=== PATIENT | female | born 1995 | race Caucasian/White ===

== ENCOUNTER 2019-03-26 23:18 | Emergency (ER) | payer OTHER ==
[2019-03-26 23:32] VITALS: BP 133/83; PULSE 78; RESP 20; TEMP 98.3
[2019-03-26] MEDS ORDERED: KETOROLAC 60 MG/2 ML VIAL IM STA (23:53)
--- NOTE | 2019-03-26 23:58 | ED ---
Extremity Problem HPI - General Chief complaint: Extremity Problem,Nontraumatic Stated complaint: Soham Knee Pain Time Seen by Provider: 03/26/19 23:32 Source: patient Mode of arrival: ambulatory Limitations: no limitations - History of Present Illness Initial comments: Patient states that since the age of 8 she has had bilateral knee pain. She states she has been previously evaluated with x-rays. Patient states that the pain continues and has been worse for the past few years. Patient states that she felt she needed evaluation. She states her knees crack when she bends them. Patient denies any knee redness swelling flulike symptoms. Patient denies any new injury or direct trauma. Patient denies any conjunctival injection or dysuria. Remaining review of systems negative upon arrival patient appears well no signs of acute distress. - Related Data Previous Rx's Medication Instructions Recorded Ibuprofen 600 mg PO Q8H PRN 7 Days #21 tablet 03/26/19 Allergies Allergy/AdvReac Type Severity Reaction Status Date / Time dextromethorphan Allergy Swelling Verified 03/26/19 23:32 [From Mucinex DM] guaifenesin [From Mucinex DM] Allergy Swelling Verified 03/26/19 23:32 Sulfa (Sulfonamide AdvReac Unknown Verified 03/26/19 23:32 Antibiotics) Review of Systems ROS Statement: Those systems with pertinent positive or pertinent negative responses have been documented in the HPI. ROS Other: All systems not noted in ROS Statement are negative. Past Medical History Past Medical History: No Reported History History of Any Multi-Drug Resistant Organisms: None Reported Past Surgical History: No Surgical Hx Reported Past Psychological History: No Psychological Hx Reported Smoking Status: Never smoker Past Alcohol Use History: Rare Past Drug Use History: None Reported General Exam - General Exam Comments Initial Comments: General: The patient is awake and alert, in no distress, and does not appear acutely ill. Eye: Pupils are equal, round and reactive to light, extra-ocular movements are intact. No nystagmus. There is normal conjunctiva bilaterally. No signs of icterus. Ears, nose, mouth and throat: There are moist mucous membranes and no oral lesions. Neck: The neck is supple, there is no tenderness or JVD. Cardiovascular: There is a regular rate and rhythm. No murmur, rub or gallop is appreciated. Respiratory: Lungs are clear to auscultation, respirations are non-labored, breath sounds are equal. No wheezes, stridor, rales, or rhonchi. Musculoskeletal: Normal inspection of the knee b/l. Normal ROM of knees b/l, mild crepitus Strength 5/5. Sensation intact. DP pulses equal bilaterally 2+. No calf pain or swelling. Neurological: A&O x 3. CN II-XII intact grossly, There are no obvious motor or sensory deficits. Coordination appears grossly intact. Speech is normal. Skin: Skin is warm and dry and no rashes or lesions are noted. Psychiatric: Cooperative, appropriate mood & affect, normal judgment. Limitations: no limitations Course Vital Signs 03/26/19 23:26 Temperature 98.3 F Pulse Rate 78 Respiratory 20 Rate Blood Pressure 133/83 O2 Sat by Pulse 97 Oximetry Medical Decision Making - Medical Decision Making 23yo female presenting today for cc of b/l knee pain x years. No new injury. No fevers, no redness. Patient has no conjunctivitis, denies vaginal discharge or dysuria. Patient neurovascularly intact. Patient gonorrhea and chlamydia testing pending. Patient recommended to f/u with PCP for outpatient plain films and orthopedic follow-up for years of pain. Patient is agreeable to this care plan and discharge at this time. - Lab Data Lab Results 03/27/19 Range/Units 00:14 Urine HCG, Qual Not Detected (Not Detectd) Disposition Clinical Impression: Chronic pain of both knees Disposition: HOME SELF-CARE Condition: Good Instructions (If sedation given, give patient instructions): Knee Pain (ED) Additional Instructions: Please use medication as discussed. Please follow-up with family doctor in the next 2 days, recommend orthopedic evaluation for further management. Please return to emergency room if the symptoms increase or worsen or for any other concerns. Prescriptions: Ibuprofen 600 mg PO Q8H PRN 7 Days #21 tablet PRN Reason: Pain Is patient prescribed a controlled substance at d/c from ED?: No Referrals: None,Stated [Primary Care Provider] - 1-[address] [facility] - [facility]-2 days Ed Castaneda DO [Doctor of Osteopathic Medicine] - 1-2 days Time of Disposition: 23:57
[2019-03-28 15:09] LABS: N. gonorrhoeae,PCR Negative (Neg,Equiv); Neisseria Source Urine
[2019-03-28 15:13] LABS: C. trachomatis,PCR Positive (Neg,Equiv); Chlamydia trachomatis Source Urine
== END 2019-03-27 01:01 | disposition home or self-care (01) ==
LOC: EC 23:18
DX: M25.562 Pain in left knee (principal); M25.561 Pain in right knee; G89.29 Other chronic pain; M23.8X2 Other internal derangements of left knee; M23.8X1 Other internal derangements of right knee; Z88.2 Allergy status to sulfonamides; Z88.8 Allergy status to other drugs, medicaments and biological substances
CPT/HCPCS: 99283; 96372; 81025; 87491; 87591; J1885

== ENCOUNTER 2019-04-10 14:51 | Emergency (ER) | payer OTHER ==
[2019-04-10 15:09] VITALS: TEMP 97.9
[2019-04-10] MEDS ORDERED: SODIUM CHLORIDE 0.9% 1,000 ML IV ONE (15:41)
[2019-04-10 16:20] LABS: Basophils % (A) 0 %; Eosinophils # (A) 0.1 k/uL (0-0.7); Eosinophils % (A) 1 %; HGB 13.9 gm/dL (11.4-16.0); Lymphocytes # (A) 2.2 k/uL (1.0-4.8); Lymphocytes % (A) 26 %; MCH 26.9 pg (25.0-35.0); MCV 81.4 fL (80.0-100.0); Mean Platelet Volume 7.8; Monocytes # (A) 0.4 k/uL (0-1.0); Monocytes % (A) 5 %; Neutrophils # (A) 5.7 k/uL (1.3-7.7); Neutrophils % (A) 67 %; Platelet Count 301 k/uL (150-450); RBC 5.16 m/uL (3.80-5.40); RDW 14.4 % (11.5-15.5); WBC 8.5 k/uL (3.8-10.6)
[2019-04-10 16:29] LABS: ALT 19 U/L (4-34); AST 24 U/L (14-36); African American GFR (CKD) >90 (>60 ml/min/1.73 sqM); Albumin 4.5 g/dL (3.5-5.0); Alkaline Phosphatase 94 U/L (38-126); Anion Gap 10 mmol/L; Blood Urea Nitrogen 8 mg/dL (7-17); Calcium 9.2 mg/dL (8.4-10.2); Carbon Dioxide 26 mmol/L (22-30); Chloride 102 mmol/L (98-107); Glucose 86 mg/dL (74-99); Non-African American GFR(CKD) >90 (>60 ml/min/1.73 sqM); Potassium 4.1 mmol/L (3.5-5.1); Sodium 138 mmol/L (137-145); Total Bilirubin 0.6 mg/dL (0.2-1.3); Total Protein 7.8 g/dL (6.3-8.2)
[2019-04-10 16:33] LABS: Appearance,Urine Bloody (Clear); Color,Urine Brown; Protein,Urine 3+ (Negative)
[2019-04-10 16:34] LABS: Bilirubin,Urine Negative (Negative); Blood,Urine Large (Negative); Glucose,Urine (UA) Negative (Negative); Ketones,Urine Negative (Negative); Leukocyte Esterase,Urine Negative (Negative); Nitrite,Urine Negative (Negative); Urobilinogen,Urine <2.0 mg/dL (<2.0)
[2019-04-10 16:36] LABS: Mucus,Urine Few /hpf; RBC,Urine >182 /hpf (0-5); WBC,Urine 49 /hpf (0-5)
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
--- NOTE | 2019-04-10 17:33 | US ---
EXAMINATION TYPE: US transvaginal DATE OF EXAM: 04/10/2019 COMPARISON: NONE CLINICAL HISTORY: pain. Heavy bleeding in patient with PCOS and irregular cycles, G0 TECHNIQUE: TV. Transvaginal sonographic images Date of LMP: 03/14/2019 EXAM MEASUREMENTS: Uterus: 8.8 x 4.3 x 4.1 cm Endometrial Stripe: 0.9 cm Right Ovary: 3.6 x 2.9 x 3.2 cm Left Ovary: 3.2 x 2.4 x 2.0 cm 1. Uterus: Anteverted wnl 2. Endometrium: wnl 3. Right Ovary: wnl 4. Left Ovary: 2.6cm cystic lesion seen Spectral, color and waveform doppler imaging shows good arterial and venous flow within the ovaries ; there is no evidence for ovarian torsion. 5. Bilateral Adnexa: wnl 6. Posterior cul-de-sac: wnl IMPRESSION: 1. 2.8 cm left ovarian cyst most likely related to simple ovarian cyst. Correlate clinically.
[2019-04-10] MEDS ORDERED: KETOROLAC 30 MG/ML 1 ML VIAL IVP STA (18:09)
[2019-04-10 18:13] VITALS: BP 125/69; PULSE 69; RESP 16
[2019-04-11 15:27] LABS: C. trachomatis,PCR Negative (Neg,Equiv); Chlamydia trachomatis Source Vagina; N. gonorrhoeae,PCR Negative (Neg,Equiv); Neisseria Source Vagina
== END 2019-04-10 18:23 | disposition home or self-care (01) ==
LOC: EC 14:51
DX: N83.202 Unspecified ovarian cyst, left side (principal); N93.9 Abnormal uterine and vaginal bleeding, unspecified; Z88.8 Allergy status to other drugs, medicaments and biological substances
CPT/HCPCS: 36415; 80053; 85025; 81001; 81025; 87808; 87491; 87591; 87086; 93975; 76830; 99284; 96374; 96361; J1885

== ENCOUNTER 2019-08-26 20:06 | Emergency (ER) | payer OTHER ==
[2019-08-26 20:31] VITALS: RESP 16
[2019-08-26] MEDS ORDERED: IBUPROFEN 600 MG TAB PO STA (20:44)
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
[2019-08-26 22:25] VITALS: BP 148/78; PULSE 91; TEMP 98.2
== END 2019-08-26 22:18 | disposition home or self-care (01) ==
LOC: EC 20:06
DX: S16.1XXA Strain of muscle, fascia and tendon at neck level, initial encounter (principal); M54.6 Pain in thoracic spine; Z88.2 Allergy status to sulfonamides; Z88.8 Allergy status to other drugs, medicaments and biological substances; V43.52XA Car driver injured in collision with other type car in traffic accident, initial encounter; Y92.410 Unspecified street and highway as the place of occurrence of the external cause; Y93.89 Activity, other specified
CPT/HCPCS: 70450; 72072; 72125; 81025; 99284

== ENCOUNTER 2019-09-01 16:56 | Emergency (ER) | payer OTHER ==
[2019-09-01] MEDS ORDERED: KETOROLAC 30 MG/ML 1 ML VIAL IM STA (17:41)
[2019-09-01] MEDS ORDERED: ORPHENADRINE 30 MG/ML 2 ML VIAL IM STA (17:41)
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
[2019-09-02 10:22] VITALS: BP 118/75; PULSE 77; RESP 18; TEMP 98.2
== END 2019-09-01 19:13 | disposition home or self-care (01) ==
LOC: EC 16:56
DX: S46.811A Strain of other muscles, fascia and tendons at shoulder and upper arm level, right arm, initial encounter (principal); Z88.8 Allergy status to other drugs, medicaments and biological substances; Z88.2 Allergy status to sulfonamides; V49.40XA Driver injured in collision with unspecified motor vehicles in traffic accident, initial encounter; Y92.410 Unspecified street and highway as the place of occurrence of the external cause; Y93.89 Activity, other specified
CPT/HCPCS: 71045; 96372 ×2; 99284; J2360; J1885

== ENCOUNTER 2019-10-28 21:32 | Emergency (ER) | payer OTHER ==
[2019-10-28 21:50] VITALS: RESP 16; TEMP 98.3
[2019-10-28] MEDS ORDERED: KETOROLAC 15 MG/ML 1 ML VIAL IM STA (21:58)
[2019-10-28] MEDS ORDERED: ACET/COD 300 MG/30 MG STARTER PACK 6 TAB BTL PO STA (21:58)
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
--- NOTE | 2019-10-28 22:21 | XR ---
EXAMINATION TYPE: XR ankle complete RT DATE OF EXAM: 10/28/2019 COMPARISON: NONE HISTORY: Pain and swelling TECHNIQUE: 3 views FINDINGS: Ankle mortise is anatomic. I see no fracture nor dislocation. Joint spaces are normal. IMPRESSION: Negative right ankle exam.
--- NOTE | 2019-10-28 22:23 | XR ---
EXAMINATION TYPE: XR foot complete RT DATE OF EXAM: 10/28/2019 COMPARISON: NONE HISTORY: Pain and swelling TECHNIQUE: 3 views FINDINGS: Metatarsals are intact. I see no fracture nor dislocation. Joint spaces are normal. There i s plantar calcaneal spurring. IMPRESSION: Calcaneal spurring. No fracture seen.
[2019-10-28 23:36] VITALS: BP 114/66; PULSE 65
== END 2019-10-28 23:11 | disposition home or self-care (01) ==
LOC: EC 21:32
DX: S93.401A Sprain of unspecified ligament of right ankle, initial encounter (principal); S40.212A Abrasion of left shoulder, initial encounter; Z88.8 Allergy status to other drugs, medicaments and biological substances; Z88.2 Allergy status to sulfonamides; V86.55XA Driver of 3- or 4- wheeled all-terrain vehicle (ATV) injured in nontraffic accident, initial encounter; Y92.89 Other specified places as the place of occurrence of the external cause
CPT/HCPCS: 73610; 73630; 99283; 96372; J1885

== ENCOUNTER 2019-11-15 20:00 | Emergency (ER) | payer OTHER ==
[2019-11-15 20:09] VITALS: RESP 18
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
[2019-11-15 21:28] VITALS: BP 136/80; PULSE 77; TEMP 98.3
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
== END 2019-11-15 21:28 | disposition home or self-care (01) ==
LOC: EC 20:00
DX: M25.571 Pain in right ankle and joints of right foot (principal); Z88.2 Allergy status to sulfonamides; Z88.8 Allergy status to other drugs, medicaments and biological substances
CPT/HCPCS: 99283

== ENCOUNTER → 2019-11-30 | Outpatient (CLI) | payer OTHER ==
[2019-11-30 11:01] LABS: Basophils % (A) 0 %; Eosinophils # (A) 0.1 k/uL (0-0.7); Eosinophils % (A) 1 %; HCT 42.6 % (34.0-46.0); HGB 14.2 gm/dL (11.4-16.0); Lymphocytes % (A) 21 %; MCHC 33.2 g/dL (31.0-37.0); MCV 84.4 fL (80.0-100.0); Mean Platelet Volume 7.7; Monocytes # (A) 0.5 k/uL (0-1.0); Monocytes % (A) 5 %; Neutrophils # (A) 6.8 k/uL (1.3-7.7); Neutrophils % (A) 72 %; Platelet Count 264 k/uL (150-450); RBC 5.05 m/uL (3.80-5.40); RDW 13.5 % (11.5-15.5); WBC 9.5 k/uL (3.8-10.6)
[2019-11-30 22:40] LABS: Albumin 4.5 g/dL (3.80-4.90); Albumin/Globulin Ratio 1.73 (1.60-3.17); Anion Gap 11.8 mmol/L (4.00-12.00); Calcium 9.2 mg/dL (8.7-10.3); Carbon Dioxide 25.2 mmol/L (21.6-31.8); Chol/HDL Ratio 4.34; Globulin 2.6 g/dL (1.6-3.3); LDL Cholesterol,Calculated 109.2 mg/dL (0.0-131.0); Non-African American GFR(CKD) 129.4 (60.0-200.0); Potassium 4.6 mmol/L (3.5-5.5); Total Bilirubin 0.5 mg/dL (0.2-1.2); Total Protein 7.1 g/dL (6.2-8.2); VLDL Calculation 27.8 mg/dL (5.00-40.00)
== END | disposition home or self-care (01) ==
LOC: LABWHC1 09:13
PROVIDERS: ATTEND Nurse Practitioner Family
DX: Z00.00 Encounter for general adult medical examination without abnormal findings (principal)
CPT/HCPCS: 36415; 80053; 80061; 82306; 84443; 85025

== ENCOUNTER 2019-12-06 04:55 | Emergency (ER) | payer OTHER ==
[2019-12-06 05:04] VITALS: BP 155/96; PULSE 63; RESP 18; TEMP 98
[2019-12-06] MEDS ORDERED: AMOXIC-POT CLAV 875MG STARTER PACK 2 TAB BTL PO STA (05:18)
[2019-12-06] MEDS ORDERED: AMOXIC-POT CLAV 875-125MG 1 EACH TAB PO STA (05:18)
[2019-12-06] MEDS ORDERED: ACETAMINOPHEN TAB 500 MG TAB PO STA (05:18)
[2019-12-06] MEDS ORDERED: IBUPROFEN 800 MG TAB PO STA (05:18)
--- NOTE | 2019-12-06 05:20 | ED ---
ENT HPI - General Chief complaint: ENT Stated complaint: ENT Time Seen by Provider: 12/06/19 05:05 Source: patient, RN notes reviewed, old records reviewed Mode of arrival: ambulatory Limitations: no limitations - History of Present Illness Initial comments: This is a 22-year-old female DF for evaluation of right-sided ear pain. No fevers. Maybe diminished hearing with significant pain externally around her as well. Recently diagnosed with ear infection and started on amoxicillin. 3 days and symptoms are significantly worsening MD complaint: ear pain (right) -: days(s) Location: R ear Severity: moderate Severity scale (1-10): 7 Quality: sharp Consistency: constant Improves with: pressure Worsens with: none Context- Ear: recent illness Associated Symptoms: tinnitus, hearing loss - Related Data Previous Rx's Medication Instructions Recorded Ibuprofen [Motrin] 600 mg PO Q8HR PRN #30 tab 08/26/19 Cyclobenzaprine [Flexeril] 10 mg PO TID #14 tab 09/01/19 Ibuprofen [Motrin] 600 mg PO Q8HR PRN #30 tab 10/28/19 Amoxic-Pot Clav 875-125Mg 1 tab PO Q12HR #20 tablet 12/06/19 [Augmentin 875-125] Allergies Allergy/AdvReac Type Severity Reaction Status Date / Time dextromethorphan Allergy Swelling Verified 12/06/19 05:03 [From Mucinex DM] guaifenesin [From Mucinex DM] Allergy Swelling Verified 12/06/19 05:03 Sulfa (Sulfonamide AdvReac Unknown Verified 12/06/19 05:03 Antibiotics) Review of Systems ROS Statement: Those systems with pertinent positive or pertinent negative responses have been documented in the HPI. ROS Other: All systems not noted in ROS Statement are negative. Past Medical History Past Medical History: Diabetes Mellitus History of Any Multi-Drug Resistant Organisms: None Reported Past Surgical History: No Surgical Hx Reported Past Psychological History: No Psychological Hx Reported Smoking Status: Never smoker Past Alcohol Use History: Rare Past Drug Use History: None Reported General Exam Limitations: no limitations General appearance: alert, in no apparent distress Head exam: Present: atraumatic, normocephalic, normal inspection Eye exam: Present: normal appearance, PERRL, EOMI. Absent: scleral icterus, conjunctival injection, periorbital swelling ENT exam: Present: normal exam, mucous membranes moist. Absent: TM's normal bilaterally (Right TM is obstructed secondary to significantly swelling and cellulitis of the external ear) Neck exam: Present: normal inspection. Absent: tenderness, meningismus, lymphadenopathy Respiratory exam: Present: normal lung sounds bilaterally. Absent: respiratory distress, wheezes, rales, rhonchi, stridor Cardiovascular Exam: Present: regular rate, normal rhythm, normal heart sounds. Absent: systolic murmur, diastolic murmur, rubs, gallop, clicks GI/Abdominal exam: Present: soft, normal bowel sounds. Absent: distended, tenderness, guarding, rebound, rigid Extremities exam: Present: normal inspection, full ROM, normal capillary refill. Absent: tenderness, pedal edema, joint swelling, calf tenderness Back exam: Present: normal inspection Neurological exam: Present: alert, oriented X3, CN II-XII intact Psychiatric exam: Present: normal affect, normal mood Skin exam: Present: warm, dry, intact, normal color. Absent: rash Course Vital Signs 12/06/19 04:59 Temperature 98 F Pulse Rate 63 Respiratory 18 Rate Blood Pressure 155/96 O2 Sat by Pulse 97 Oximetry - Reevaluation(s) Reevaluation #1: Medical record is reviewed Spoke with patient at length regarding findings, questions answered Patient does have otitis externa currently, will treat appropriately Medical Decision Making - Medical Decision Making 24 female DF being treated for otitis media, patient does appear to have right otitis externa Disposition Clinical Impression: Right otitis externa Disposition: HOME SELF-CARE Condition: Good Instructions (If sedation given, give patient instructions): Otitis Externa (ED) Prescriptions: Amoxic-Pot Clav 875-125Mg [Augmentin 875-125] 1 tab PO Q12HR #20 tablet Is patient prescribed a controlled substance at d/c from ED?: No Referrals: Ibrahima Nash MD [Primary Care Provider] - 1-2 days
[2019-12-06] MEDS ORDERED: CIPROFLOXACIN-DEXAMETH 0.3-0.1% DROPS 7.5 ML BTL RIGHT EAR ONE (05:30)
== END 2019-12-06 05:48 | disposition home or self-care (01) ==
LOC: EC 04:55
DX: H60.91 Unspecified otitis externa, right ear (principal); Z88.2 Allergy status to sulfonamides; Z88.8 Allergy status to other drugs, medicaments and biological substances
CPT/HCPCS: 99283

== ENCOUNTER 2020-01-31 23:21 | Emergency (ER) | payer OTHER ==
[2020-01-31 23:30] VITALS: BP 134/90; PULSE 68; RESP 20; TEMP 98
--- NOTE | 2020-02-01 00:07 | ED ---
Skin/Abscess/FB HPI - General Chief complaint: Skin/Abscess/Foreign Body Stated complaint: Rt breast bleeding Time Seen by Provider: 01/31/20 23:40 Source: patient Mode of arrival: ambulatory Limitations: no limitations - History of Present Illness Initial comments: Patient is a 24-year-old female presenting to the emergency Department with complaints of bleeding from her right nipple that started earlier today. She states she has bilateral nipple piercings for the past 2 years and has never had an issue with them. She states she did not snag the ring on anything and she denies any other injuries or trauma to the area. She denies any fever or chills. Patient has no further complaints at this time. - Related Data Previous Rx's Medication Instructions Recorded Ibuprofen [Motrin] 600 mg PO Q8HR PRN #30 tab 08/26/19 Cyclobenzaprine [Flexeril] 10 mg PO TID #14 tab 09/01/19 Ibuprofen [Motrin] 600 mg PO Q8HR PRN #30 tab 10/28/19 Amoxic-Pot Clav 875-125Mg 1 tab PO Q12HR #20 tablet 12/06/19 [Augmentin 875-125] Allergies Allergy/AdvReac Type Severity Reaction Status Date / Time dextromethorphan Allergy Swelling Verified 01/31/20 23:30 [From Mucinex DM] guaifenesin [From Mucinex DM] Allergy Swelling Verified 01/31/20 23:30 Sulfa (Sulfonamide AdvReac Unknown Verified 01/31/20 23:30 Antibiotics) Review of Systems ROS Statement: Those systems with pertinent positive or pertinent negative responses have been documented in the HPI. ROS Other: All systems not noted in ROS Statement are negative. Past Medical History Past Medical History: Diabetes Mellitus History of Any Multi-Drug Resistant Organisms: None Reported Past Surgical History: No Surgical Hx Reported Past Psychological History: No Psychological Hx Reported Smoking Status: Never smoker Past Alcohol Use History: Rare Past Drug Use History: None Reported General Exam - General Exam Comments Initial Comments: GENERAL: Patient is well-developed and well-nourished. Patient is nontoxic and in no acute distress. HEAD: Atraumatic, normocephalic. EYES: Pupils equal round and reactive to light, extraocular movements intact, sclera anicteric, conjunctiva are normal. Eyelids were unremarkable. ENT: Nares patent, oropharynx clear without exudates. Moist mucous membranes. NECK: Normal range of motion, supple without lymphadenopathy or JVD. LUNGS: Unlabored respirations. Breath sounds clear to auscultation bilaterally and equal. No wheezes rales or rhonchi. HEART: Regular rate and rhythm without murmurs, rubs or gallops. ABDOMEN: Soft, nontender, normoactive bowel sounds. No guarding, no rebound. No masses appreciated. : Deferred MUSCULOSKELETAL: Normal extremities with adequate strength and normal range of motion, no pitting or edema. No clubbing or cyanosis. NEUROLOGICAL: Patient is alert and oriented x 3. Normal speech, normal gait. PSYCH: Normal mood, normal affect. SKIN: Warm, Dry, normal turgor, no rashes. Patient has bilateral nipple piercings, right nipple appears normal. There is no active bleeding, patient squeezes her nipple, again no bleeding. There is no erythema, no signs of infection, no drainage whatsoever. Limitations: no limitations Course Vital Signs 01/31/20 23:28 Temperature 98.0 F Pulse Rate 68 Respiratory 20 Rate Blood Pressure 134/90 O2 Sat by Pulse 98 Oximetry Medical Decision Making - Medical Decision Making Patient is a 25-year-old female here with complaints of right nipple bleeding since this morning. On exam, there is no active bleeding, no signs of infection, area appears normal. I discussed with patient this could be due to dry skin. I recommended moisturizer. She is stable for discharge. She is follow-up with her PCP if symptoms persist. Disposition Clinical Impression: Skin irritation Disposition: HOME SELF-CARE Condition: Stable Instructions (If sedation given, give patient instructions): Normal Exam (ED) Additional Instructions: Please return to the Emergency Department if symptoms worsen or any other concerns. Keep the area well moisturized. Follow-up with PCP if needed. Is patient prescribed a controlled substance at d/c from ED?: No Referrals: Ibrahima Nash MD [Primary Care Provider] - 1-2 days
== END 2020-02-01 00:23 | disposition home or self-care (01) ==
LOC: EC 23:21
DX: R23.8 Other skin changes (principal); E11.9 Type 2 diabetes mellitus without complications; Z88.2 Allergy status to sulfonamides; Z88.8 Allergy status to other drugs, medicaments and biological substances
CPT/HCPCS: 99283

== ENCOUNTER 2020-03-28 15:56 | Emergency (ER) | payer OTHER ==
[2020-03-28 16:06] VITALS: BP 137/92; PULSE 73; RESP 16; TEMP 98.4
[2020-03-28 16:22] LABS: Appearance,Urine Clear (Clear); Bilirubin,Urine Negative (Negative); Blood,Urine Large (Negative); Color,Urine Light Yellow; Glucose,Urine (UA) Negative (Negative); Ketones,Urine Negative (Negative); Leukocyte Esterase,Urine Negative (Negative); Nitrite,Urine Negative (Negative); PH, Urine 8.5 (5.0-8.0); Protein,Urine Negative (Negative); RBC,Urine 27 /hpf (0-5); Specific Gravity,Urine 1.011 (1.001-1.035); Squamous Epithelial Cell,Urine <1 /hpf (0-4); Urobilinogen,Urine <2.0 mg/dL (<2.0); WBC,Urine 1 /hpf (0-5)
--- NOTE | 2020-03-28 16:32 | ED ---
Female Urogenital HPI - General Chief complaint: Vaginal Bleeding Stated complaint: femal Time Seen by Provider: 03/28/20 16:07 Source: patient Mode of arrival: ambulatory Limitations: no limitations - History of Present Illness Initial comments: 24-year-old with irregular periods presenting for vaginal bleeding. Patient states she is having moderate to heavy vaginal bleeding for the past 2 days. She states she is want to make sure she was not . Patient states she is some mild cramping cramping the back otherwise denies nausea or vomiting severe abdominal pain she denies any vaginal lacerations or potential vaginal trauma that could've caused laceration. Patient denies vaginal discharge or fevers remainder of the systems negative upon arrival patient appears well nontoxic distress Last Menstrual Period: 01/03/20 - Related Data Previous Rx's Medication Instructions Recorded Ibuprofen [Motrin] 600 mg PO Q8HR PRN #30 tab 08/26/19 Cyclobenzaprine [Flexeril] 10 mg PO TID #14 tab 09/01/19 Ibuprofen [Motrin] 600 mg PO Q8HR PRN #30 tab 10/28/19 Amoxic-Pot Clav 875-125Mg 1 tab PO Q12HR #20 tablet 12/06/19 [Augmentin 875-125] Allergies Allergy/AdvReac Type Severity Reaction Status Date / Time dextromethorphan Allergy Swelling Verified 03/28/20 16:06 [From Mucinex DM] guaifenesin [From Mucinex DM] Allergy Swelling Verified 03/28/20 16:06 Sulfa (Sulfonamide AdvReac Unknown Verified 03/28/20 16:06 Antibiotics) Review of Systems ROS Statement: Those systems with pertinent positive or pertinent negative responses have been documented in the HPI. ROS Other: All systems not noted in ROS Statement are negative. Past Medical History Past Medical History: No Reported History History of Any Multi-Drug Resistant Organisms: None Reported Past Surgical History: No Surgical Hx Reported Past Psychological History: No Psychological Hx Reported Smoking Status: Never smoker Past Alcohol Use History: Occasional Past Drug Use History: None Reported General Exam - General Exam Comments Initial Comments: General: The patient is awake and alert, in no distress, and does not appear acutely ill. Eye: Pupils are equal, round and reactive to light, extra-ocular movements are intact. No nystagmus. There is normal conjunctiva bilaterally. No signs of icterus. Cardiovascular: There is a regular rate and rhythm. No murmur, rub or gallop is appreciated. Respiratory: Lungs are clear to auscultation, respirations are non-labored, breath sounds are equal. No wheezes, stridor, rales, or rhonchi. Gastrointestinal: Soft, non-distended, non-tender abdomen without masses or organomegaly noted. There is no rebound or guarding present. : MIld to almost no blood in vault, os closed. no adnexal or cervical motion tenderness. no discharge no odors. Musculoskeletal: Normal ROM, no tenderness. Strength 5/5. Sensation intact. Pulses equal bilaterally 2+. Neurological: A&O x 3. CN II-XII intact, There are no obvious motor or sensory deficits. Coordination appears grossly intact. Speech is normal. Skin: Skin is warm and dry and no rashes or lesions are noted. Psychiatric: Cooperative, appropriate mood & affect, normal judgment. Limitations: no limitations Course Vital Signs 03/28/20 16:02 Temperature 98.4 F Pulse Rate 73 Respiratory 16 Rate Blood Pressure 137/92 O2 Sat by Pulse 96 Oximetry Medical Decision Making - Medical Decision Making 24yo with known irregular periods. very mild bleeding on exam. hcg (-) no pain on exam, or pelvic. this is felt to be menstruation. recommend repeat HCG urine next week. pt discharged appearing well. discussed case with Iveth Arzola. - Lab Data Lab Results 03/28/20 03/28/20 03/28/20 Range/Units 16:15 16:15 16:22 Urine Color Light Yellow Urine Appearance Clear (Clear) Urine pH 8.5 H (5.0-8.0) Ur Specific [place] 1.011 (1.001-1.035) Urine Protein Negative (Negative) Urine Glucose (UA) Negative (Negative) Urine Ketones Negative (Negative) Urine Blood Large H (Negative) Urine Nitrite Negative (Negative) Urine Bilirubin Negative (Negative) Urine Urobilinogen <2.0 (<2.0) mg/dL Ur Leukocyte Esterase Negative (Negative) Urine RBC 27 H (0-5) /hpf Urine WBC 1 (0-5) /hpf Ur Squamous Epith Cells <1 (0-4) /hpf Urine HCG, Qual Not Detected (Not Detectd) Trichomonas Ag (Rapid) Negative (Negative) Disposition Clinical Impression: Irregular menses Disposition: HOME SELF-CARE Condition: Good Instructions (If sedation given, give patient instructions): Dysmenorrhea (ED) Additional Instructions: Please use medication as discussed. Please follow-up with family doctor in the next 2 days. Repeat HCG in 1 week. Please return to emergency room if the symptoms increase or worsen or for any other concerns. Is patient prescribed a controlled substance at d/c from ED?: No Referrals: Ibrahima Nash MD [Primary Care Provider] - 1-2 days Time of Disposition: 16:32
[2020-03-29 15:58] LABS: C. trachomatis,PCR Negative (Neg,Equiv); Chlamydia trachomatis Source Vagina; N. gonorrhoeae,PCR Negative (Neg,Equiv); Neisseria Source Vagina
== END 2020-03-28 16:46 | disposition home or self-care (01) ==
LOC: EC 15:56
DX: N92.6 Irregular menstruation, unspecified (principal); Z88.2 Allergy status to sulfonamides; Z88.8 Allergy status to other drugs, medicaments and biological substances
CPT/HCPCS: 81001; 81025; 87070; 87491; 87591; 87808; 99284

== ENCOUNTER 2020-07-22 01:33 | Emergency (ER) | payer OTHER ==
[2020-07-22 01:37] VITALS: TEMP 98
[2020-07-22] MEDS ORDERED: SODIUM CHLORIDE 0.9% 1,000 ML IV ONE (01:46)
--- NOTE | 2020-07-22 02:16 | ED ---
Female Urogenital HPI - General Chief complaint: Abdominal Pain Stated complaint: Abdominal Pain, vaginal bleeding Time Seen by Provider: 07/22/20 01:47 Source: patient Mode of arrival: ambulatory Limitations: no limitations - History of Present Illness Last Menstrual Period: 06/27/20 - Related Data Previous Rx's Medication Instructions Recorded RX: Ibuprofen [Motrin] 600 mg PO Q8HR PRN #30 tab 08/26/19 Cyclobenzaprine [Flexeril] 10 mg PO TID #14 tab 09/01/19 RX: Ibuprofen [Motrin] 600 mg PO Q8HR PRN #30 tab 10/28/19 RX: Amoxic-Pot Clav 875-125Mg 1 tab PO Q12HR #20 tablet 12/06/19 [Augmentin 875-125] Allergies Allergy/AdvReac Type Severity Reaction Status Date / Time dextromethorphan Allergy Swelling Verified 07/22/20 01:37 [From Mucinex DM] guaifenesin [From Mucinex DM] Allergy Swelling Verified 07/22/20 01:37 Sulfa (Sulfonamide AdvReac Unknown Verified 07/22/20 01:37 Antibiotics) Review of Systems ROS Statement: Those systems with pertinent positive or pertinent negative responses have been documented in the HPI. ROS Other: All systems not noted in ROS Statement are negative. Past Medical History Past Medical History: No Reported History History of Any Multi-Drug Resistant Organisms: None Reported Past Surgical History: No Surgical Hx Reported Past Psychological History: No Psychological Hx Reported Smoking Status: Never smoker Past Alcohol Use History: None Reported Past Drug Use History: None Reported General Exam Limitations: no limitations Course Vital Signs 07/22/20 01:34 Temperature 98 F Pulse Rate 67 Respiratory 16 Rate Blood Pressure 152/87 O2 Sat by Pulse 97 Oximetry Medical Decision Making - Lab Data Result diagrams: 07/22/20 02:12 07/22/20 02:12 Lab Results 07/22/20 07/22/20 07/22/20 Range/Units 02:12 02:12 02:12 WBC 8.5 (3.8-10.6) k/uL RBC 4.87 (3.80-5.40) m/uL Hgb 13.6 (11.4-16.0) gm/dL Hct 39.6 (34.0-46.0) % MCV 81.3 (80.0-100.0) fL MCH 27.9 (25.0-35.0) pg MCHC 34.3 (31.0-37.0) g/dL RDW 13.9 (11.5-15.5) % Plt Count 267 (150-450) k/uL MPV 7.8 Neutrophils % 64 % Lymphocytes % 30 % Monocytes % 5 % Eosinophils % 1 % Basophils % 0 % Neutrophils # 5.4 (1.3-7.7) k/uL Lymphocytes # 2.5 (1.0-4.8) k/uL Monocytes # 0.4 (0-1.0) k/uL Eosinophils # 0.1 (0-0.7) k/uL Basophils # 0.0 (0-0.2) k/uL PT 10.2 (9.0-12.0) sec INR 0.9 (<1.2) APTT 25.4 (22.0-30.0) sec Sodium 140 (137-145) mmol/L Potassium 3.9 (3.5-5.1) mmol/L Chloride 104 (98-107) mmol/L Carbon Dioxide 26 (22-30) mmol/L Anion Gap 10 mmol/L BUN 13 (7-17) mg/dL Creatinine 0.56 (0.52-1.04) mg/dL Est GFR (CKD-EPI)AfAm >90 (>60 ml/min/1.73 sqM) Est GFR (CKD-EPI)NonAf >90 (>60 ml/min/1.73 sqM) Glucose 80 (74-99) mg/dL Calcium 9.6 (8.4-10.2) mg/dL Total Bilirubin 0.3 (0.2-1.3) mg/dL AST 24 (14-36) U/L ALT 15 (4-34) U/L Alkaline Phosphatase 84 (38-126) U/L Total Protein 7.6 (6.3-8.2) g/dL Albumin 4.7 (3.5-5.0) g/dL HCG, Quant 24.7 mIU/mL Urine Color Urine Appearance (Clear) Urine pH (5.0-8.0) Ur Specific [place] (1.001-1.035) Urine Protein (Negative) Urine Glucose (UA) (Negative) Urine Ketones (Negative) Urine Blood (Negative) Urine Nitrite (Negative) Urine Bilirubin (Negative) Urine Urobilinogen (<2.0) mg/dL Ur Leukocyte Esterase (Negative) Urine RBC (0-5) /hpf Urine WBC (0-5) /hpf Ur Squamous Epith Cells (0-4) /hpf Urine Bacteria (None) /hpf Urine Mucus (None) /hpf 07/22/20 Range/Units 02:15 WBC (3.8-10.6) k/uL RBC (3.80-5.40) m/uL Hgb (11.4-16.0) gm/dL Hct (34.0-46.0) % MCV (80.0-100.0) fL MCH (25.0-35.0) pg MCHC (31.0-37.0) g/dL RDW (11.5-15.5) % Plt Count (150-450) k/uL MPV Neutrophils % % Lymphocytes % % Monocytes % % Eosinophils % % Basophils % % Neutrophils # (1.3-7.7) k/uL Lymphocytes # (1.0-4.8) k/uL Monocytes # (0-1.0) k/uL Eosinophils # (0-0.7) k/uL Basophils # (0-0.2) k/uL PT (9.0-12.0) sec INR (<1.2) APTT (22.0-30.0) sec Sodium (137-145) mmol/L Potassium (3.5-5.1) mmol/L Chloride (98-107) mmol/L Carbon Dioxide (22-30) mmol/L Anion Gap mmol/L BUN (7-17) mg/dL Creatinine (0.52-1.04) mg/dL Est GFR (CKD-EPI)AfAm (>60 ml/min/1.73 sqM) Est GFR (CKD-EPI)NonAf (>60 ml/min/1.73 sqM) Glucose (74-99) mg/dL Calcium (8.4-10.2) mg/dL Total Bilirubin (0.2-1.3) mg/dL AST (14-36) U/L ALT (4-34) U/L Alkaline Phosphatase (38-126) U/L Total Protein (6.3-8.2) g/dL Albumin (3.5-5.0) g/dL HCG, Quant mIU/mL Urine Color Yellow Urine Appearance Clear (Clear) Urine pH 6.0 (5.0-8.0) Ur Specific [place] 1.030 (1.001-1.035) Urine Protein Trace H (Negative) Urine Glucose (UA) Negative (Negative) Urine Ketones Negative (Negative) Urine Blood Large H (Negative) Urine Nitrite Negative (Negative) Urine Bilirubin Negative (Negative) Urine Urobilinogen <2.0 (<2.0) mg/dL Ur Leukocyte Esterase Small H (Negative) Urine RBC 3 (0-5) /hpf Urine WBC 17 H (0-5) /hpf Ur Squamous Epith Cells 3 (0-4) /hpf Urine Bacteria Rare H (None) /hpf Urine Mucus Occasional H (None) /hpf Disposition Clinical Impression: Threatened Disposition: HOME SELF-CARE Condition: Good Instructions (If sedation given, give patient instructions): Miscarriage (ED), Threatened Miscarriage (ED) Is patient prescribed a controlled substance at d/c from ED?: No Referrals: Ibrahima Nash MD [Primary Care Provider] - 1-2 days
[2020-07-22 03:42] LABS: Basophils % (A) 0 %; Eosinophils # (A) 0.1 k/uL (0-0.7); Eosinophils % (A) 1 %; HCT 39.6 % (34.0-46.0); HGB 13.6 gm/dL (11.4-16.0); Lymphocytes # (A) 2.5 k/uL (1.0-4.8); Lymphocytes % (A) 30 %; MCH 27.9 pg (25.0-35.0); MCHC 34.3 g/dL (31.0-37.0); MCV 81.3 fL (80.0-100.0); Mean Platelet Volume 7.8; Monocytes # (A) 0.4 k/uL (0-1.0); Monocytes % (A) 5 %; Neutrophils # (A) 5.4 k/uL (1.3-7.7); Neutrophils % (A) 64 %; Platelet Count 267 k/uL (150-450); RBC 4.87 m/uL (3.80-5.40); RDW 13.9 % (11.5-15.5); WBC 8.5 k/uL (3.8-10.6)
[2020-07-22 03:49] LABS: INR 0.9 (<1.2); Partial Thromboplastin Time 25.4 sec (22.0-30.0); Prothrombin Time 10.2 sec (9.0-12.0)
[2020-07-22 03:50] LABS: Appearance,Urine Clear (Clear); Bacteria,Urine Rare /hpf; Bilirubin,Urine Negative (Negative); Blood,Urine Large (Negative); Color,Urine Yellow; Glucose,Urine (UA) Negative (Negative); Ketones,Urine Negative (Negative); Leukocyte Esterase,Urine Small (Negative); Mucus,Urine Occasional /hpf; Nitrite,Urine Negative (Negative); Protein,Urine Trace (Negative); RBC,Urine 3 /hpf (0-5); Squamous Epithelial Cell,Urine 3 /hpf (0-4); Urobilinogen,Urine <2.0 mg/dL (<2.0); WBC,Urine 17 /hpf (0-5)
[2020-07-22 03:52] LABS: ALT 15 U/L (4-34); AST 24 U/L (14-36); African American GFR (CKD) >90 (>60 ml/min/1.73 sqM); Albumin 4.7 g/dL (3.5-5.0); Alkaline Phosphatase 84 U/L (38-126); Anion Gap 10 mmol/L; Blood Urea Nitrogen 13 mg/dL (7-17); Calcium 9.6 mg/dL (8.4-10.2); Carbon Dioxide 26 mmol/L (22-30); Chloride 104 mmol/L (98-107); Glucose 80 mg/dL (74-99); Non-African American GFR(CKD) >90 (>60 ml/min/1.73 sqM); Potassium 3.9 mmol/L (3.5-5.1); Sodium 140 mmol/L (137-145); Total Bilirubin 0.3 mg/dL (0.2-1.3); Total Protein 7.6 g/dL (6.3-8.2)
[2020-07-22 04:09] LABS: HCG,Quantitative Serum 24.7 mIU/mL
[2020-07-22] MEDS ORDERED: MAG HYDROX/AL HYDROX/SIMETH 30 ML, HYOSCYAMINE ELIXIR 10 ML, LIDOCAINE VISCOUS 2% 10 ML PO STA ×3 (04:12)
[2020-07-22] MEDS ORDERED: Rhogam IMMUNE GLOBULIN 1,500 UNIT/1 ML IM ONE (04:47)
[2020-07-22 06:02] VITALS: BP 148/68; PULSE 78; RESP 18
== END 2020-07-22 06:24 | disposition home or self-care (01) ==
LOC: EC 01:33
DX: O20.0 Threatened abortion (principal); Z3A.00 Weeks of gestation of pregnancy not specified
CPT/HCPCS: 36415; 86900; 86901; 80053; 85025; 85610; 85730; 86850; 81001; 84702; 99284; 96360; 96361; 96372; J2790

== ENCOUNTER 2021-02-24 23:08 | Emergency (ER) | payer OTHER ==
[2021-02-24] MEDS ORDERED: PROPARACAINE 0.5% OPHTH DROPS 15 ML BTL BOTH EYES STA (23:47)
[2021-02-24 23:50] VITALS: BP 136/87; PULSE 70; RESP 18; TEMP 97.9
[2021-02-25] MEDS ORDERED: FLUORESCEIN STRIPS 1 MG STRIP BOTH EYES ONE (00:05)
[2021-02-25] MEDS ORDERED: prednisoLONE ACETATE 1% OPHTH DROPS 5 ML BTL BOTH EYES ONE (00:23)
[2021-02-25] MEDS ORDERED: TOBRAMYCIN 0.3% OPHTH DROPS 5 ML BTL BOTH EYES STA (00:23)
--- NOTE | 2021-02-25 00:27 | ED ---
Eye Problem HPI - General Chief complaint: Eye Problems Stated complaint: Bilateral eye pain Source: patient, RN notes reviewed Mode of arrival: ambulatory Limitations: no limitations - History of Present Illness Initial comments: 24-year-old female presents emergency Department chief complaint bilateral eye irritation. Patient's had symptoms for last 8 days progressively getting worse severe pain. Patient is been seen an outside facilityand multiple eyedrops, oral antibiotics. Patient symptoms are worsening. Patient states that her vision is blurry at times, very painful. The contacts no glasses. - Related Data Previous Rx's Medication Instructions Recorded Ibuprofen [Motrin] 600 mg PO Q8HR PRN #30 tab 08/26/19 Cyclobenzaprine [Flexeril] 10 mg PO TID #14 tab 09/01/19 Ibuprofen [Motrin] 600 mg PO Q8HR PRN #30 tab 10/28/19 Amoxic-Pot Clav 875-125Mg 1 tab PO Q12HR #20 tablet 12/06/19 [Augmentin 875-125] Allergies Allergy/AdvReac Type Severity Reaction Status Date / Time dextromethorphan Allergy Swelling Verified 02/24/21 23:46 [From Mucinex DM] guaifenesin [From Mucinex DM] Allergy Swelling Verified 02/24/21 23:46 Sulfa (Sulfonamide AdvReac Unknown Verified 02/24/21 23:46 Antibiotics) Review of Systems ROS Statement: Those systems with pertinent positive or pertinent negative responses have been documented in the HPI. ROS Other: All systems not noted in ROS Statement are negative. Past Medical History Past Medical History: No Reported History History of Any Multi-Drug Resistant Organisms: None Reported Past Surgical History: No Surgical Hx Reported Past Psychological History: No Psychological Hx Reported Smoking Status: Never smoker Past Alcohol Use History: None Reported Past Drug Use History: None Reported General Exam Limitations: no limitations General appearance: alert, in no apparent distress Head exam: Present: atraumatic, normocephalic, normal inspection Eye exam: Present: PERRL, EOMI, conjunctival injection (Bilateral). Absent: normal appearance, scleral icterus, periorbital swelling Pupils: Present: other (No fluorescein uptake, interactive pressure 9 on the right, 10 on the left) ENT exam: Present: normal exam, mucous membranes moist Neck exam: Present: normal inspection, full ROM. Absent: tenderness, meningismus, lymphadenopathy Respiratory exam: Present: normal lung sounds bilaterally. Absent: respiratory distress, wheezes, rales, rhonchi, stridor Cardiovascular Exam: Present: regular rate, normal rhythm, normal heart sounds. Absent: systolic murmur, diastolic murmur, rubs, gallop, clicks Course Vital Signs 02/24/21 23:47 Temperature 97.9 F Pulse Rate 70 Respiratory 18 Rate Blood Pressure 136/87 O2 Sat by Pulse 97 Oximetry Medical Decision Making - Medical Decision Making Patient does have severe conjunctival injection, normal pressure is no fluorescein uptake. Patient symptoms are consistent with severe conjunctivitis a related to bacterial versus inflammatory process. Patient will discontinue prior drops, oral antibiotics contact ophthalmology Dr. Higuera in the morning return for worsening change in symptoms. Disposition Clinical Impression: Conjunctivitis Disposition: HOME SELF-CARE Condition: Stable Instructions (If sedation given, give patient instructions): Conjunctivitis (ED) Additional Instructions: Please return to the Emergency Department if symptoms worsen or any other concerns. Is patient prescribed a controlled substance at d/c from ED?: No Referrals: Ibrahima Nash MD [Primary Care Provider] - 1-2 days Rissa Higuera MD [STAFF PHYSICIAN] - 1-2 days Time of Disposition: 00:24
== END 2021-02-25 01:19 | disposition home or self-care (01) ==
LOC: EC 23:08
DX: H10.9 Unspecified conjunctivitis (principal); Z88.8 Allergy status to other drugs, medicaments and biological substances; Z88.2 Allergy status to sulfonamides
CPT/HCPCS: 99283

== ENCOUNTER → 2021-02-26 | Outpatient (CLI) | payer OTHER ==
[2021-02-26 22:43] LABS: HIV 2 AB Non-Reactive (Non-Reactive); HIV AB P24 Non-Reactive (Non-Reactive); HIV P24 AG Non-Reactive (Non-Reactive)
[2021-02-27 04:07] LABS: Rheumatoid Factor, Qnt <10 IU/mL (0-15)
[2021-02-27 09:29] LABS: HLA B27 POSITIVE
[2021-02-27 11:22] LABS: Angiotensin-1 Converting Enz. 17 U/L (8-52)
== END | disposition home or self-care (01) ==
LOC: LABWHC1 13:51
PROVIDERS: ATTEND Ophthalmology
DX: H44.139 Sympathetic uveitis, unspecified eye (principal)
CPT/HCPCS: 36415; 82164; 85549; 85652; 86038; 86140; 86431; 86618; 86780; 86812; 87390